=== PATIENT | female | born 1955 ===

== ENCOUNTER 2017-01-12 09:51 | Emergency (ER) | payer BC ==
[2017-01-12] MEDS ORDERED: NS 0.9% 1000 ML* 1,000 ML IV ONE (10:48)
[2017-01-12] MEDS ORDERED: Meclizine TAB* 12.5 MG PO ONE (10:48)
--- NOTE | 2017-01-12 11:27 | RAD ---
HISTORY: Facial weakness, numbness COMPARISONS: None TECHNIQUE: Multiple contiguous axial CT scans were obtained of the head without intravenous contrast. FINDINGS: HEMORRHAGE/INFARCT: There is no hemorrhage or acute infarct. MASSES/SHIFT: There is no mass or shift. EXTRA-AXIAL SPACES: There are no extra-axial fluid collections. SULCI AND VENTRICLES: The sulci and ventricles are normal in size and position for the patient's stated age. CEREBRUM: There are no focal parenchymal abnormalities. BRAINSTEM: There are no focal parenchymal abnormalities. CEREBELLUM: There are no focal parenchymal abnormalities. VESSELS: The vessels are grossly normal. PARANASAL SINUSES: The paranasal sinuses are clear. ORBITS: The orbits are unremarkable. BONES AND SOFT TISSUE: No bone or soft tissue abnormalities are noted. OTHER: None IMPRESSION: NO ACUTE INTRACRANIAL PATHOLOGY.
[2017-01-12 11:38] LABS: Hematocrit 37 % (35-47); Hemoglobin 12.5 g/dl (12.0-16.0); Mean Corpuscular HGB Conc 34 g/dl (31-36); Mean Corpuscular Hemoglobin 31 pg (27-31); Mean Corpuscular Volume 94 fL (80-97); Mean Platelet Volume 9 um3 (7.4-10.4); Red Blood Count 3.98 10^6/ul (4.0-5.4); Red Cell Distribution Width 13 % (10.5-15)
[2017-01-12 11:54] LABS: Albumin 4.1 g/dL (3.2-5.2); BUN/Creatinine Ratio 25.6 (8-20); C Reactive Protein 1.03 mg/L (< 5.00); Calcium 8.8 mg/dL (8.6-10.3); EGFR African American 97.2 (>60); EGFR Non-African American 75.6 (>60); Globulin 2.2 g/dL (2-4); Magnesium 2.3 mg/dL (1.9-2.7); Potassium 4.3 mmol/L (3.5-5.0); Total Bilirubin 0.5 mg/dL (0.2-1.0); Total Protein 6.3 g/dL (6.4-8.9)
[2017-01-12 11:55] LABS: Troponin I 0.02 ng/mL (<0.04)
[2017-01-12 12:20] LABS: TSH (Thyroid Stimulating Horm) 2.63 mcIU/mL (0.34-5.60)
[2017-01-12 14:00] VITALS: BP 119/57
--- NOTE | 2017-01-12 18:52 | ED ---
Shanti White Edward, scribed for Kavon Martinez MD on 01/12/17 at 1048 . Palpitations / Dysrhythmia - HPI Summary HPI Summary: 61 y/o female presents to ED c/o R side face tightness radiating to the ear and neck. There is no tinnitus or decreased hearing. Associated sx: HERZOG yesterday evening. Pt c/o unsteadiness this morning and four days ago. There was also nausea, lightheadedness and dizziness four days ago. Patient states she had heart palpitations (racing) yesterday afternoon subsided after cold water and rest. No CP. PMHx heart palpitations (for years), HLD. No PMHx HTN, DM. FHx HTN. Occasional EtOH use. - History of Current Complaint Chief Complaint: EDChestPainROMI Time Seen by Provider: 01/12/17 10:18 Hx Obtained From: Patient Onset/Duration: Sudden Onset, Lasting Days - Yesterday afternoon Associated Signs & Symptoms: Lightheadedness, Dizzy - Unsteadiness, Nausea - Four days ago - Allergy/Home Medications Allergies/Adverse Reactions: Allergies Allergy/AdvReac Type Severity Reaction Status Date / Time No Known Allergies Allergy Verified 11/10/12 14:38 PMH/Surg Hx/FS Hx/Imm Hx Previously Healthy: No Cardiovascular History: Reports: Other Cardiovascular Problems/Disorders - History of palpitations Psychiatric History: Denies: Other Psychiatric Issues/Disorders - Cancer History Cancer Type, Location and Year: No Breast CA - Surgical History Surgery Procedure, Year, and Place: Spinal fusion in using piece of R pelvis - Immunization History Date of Tetanus Vaccine: Unk Date of Influenza Vaccine: Fall 2011 Infectious Disease History: No Infectious Disease History: Denies: Traveled Outside the [place] in Last 30 Days - Family History Known Family History: Positive: Hypertension - Mother, Other - No FHx Breast CA - Social History Occupation: Employed Full-time Lives: With Family Alcohol Use: Occasionally Substance Use Type: Reports: None Smoking Status (MU): Former Smoker Review of Systems Constitutional: Negative Eyes: Negative ENT: Negative - No tinnitus or hearing deficit Positive: Palpitations. Negative: Chest Pain Respiratory: Negative Positive: Nausea Genitourinary: Negative Musculoskeletal: Negative Skin: Negative Neurological: Other - R side facial tightness radiating to the R ear and neck. Dizziness, lightheadedness and unsteady on feet Psychological: Normal All Other Systems Reviewed And Are Negative: Yes Physical Exam - Summary Physical Exam Summary: The patient is well-nourished in no acute distress and in no acute pain. The skin is warm and dry and skin color reflects adequate perfusion. HEENT: The head is normocephalic and atraumatic. The pupils are equal and reactive. There is horizontal nystagmus. The conjunctivae are clear and without drainage. Nares are patent and without drainage. Mouth reveals moist mucous membranes and the throat is without erythema and exudate. The external ears are intact. The ear canals are patent and without drainage. The tympanic membranes are intact. There is no facial droop or numbness to the face. Neck is supple with full range of motion and non-tender. There are no carotid bruits. There is no neck vein distension. Respiratory: Chest is non-tender. Lungs are clear to auscultation and breath sounds are symmetrical and equal. Cardiovascular: Hear is regular rate and rhythm. There is no murmur or rub auscultated. There is no peripheral edema and pulses are symmetrical and equal. Abdomen: The abdomen is soft and non-tender. There are normal bowel sounds heard in all four quadrants and there is no organomegaly palpated. Musculoskeletal: There is no back pain noted. Extremities are non-tender with full range of motion. There is good capillary refill. There is no peripheral edema or calf tenderness elicited. Neurological: Patient is alert and oriented to person, place and time. The patient has symmetrical motor strength in all four extremities. Cranial nerves are grossly intact. Deep tendon reflexes are symmetrical and equal in all four extremities. She has good [id number]. There is no pronator drift. Psychiatric: The patient has an appropriate affect and does not exhibit any anxiety or depression. Triage Information Reviewed: Yes Vital Signs On Initial Exam: Initial Vitals Temp Pulse Resp BP Pulse Ox 97.6 F 59 16 159/73 100 01/12/17 09:55 01/12/17 09:55 01/12/17 09:55 01/12/17 09:55 01/12/17 09:55 Vital Signs Reviewed: Yes - Sonia Coma Scale Coma Scale Total: 15 Diagnostics - Vital Signs Vital Signs Temp Pulse Resp BP Pulse Ox 01/12/17 10:15 58 01/12/17 10:10 97.8 F 58 16 135/72 100 01/12/17 09:55 97.6 F 59 16 159/73 100 - Laboratory Lab Results: Lab Results 01/12/17 01/12/17 01/12/17 Range/Units 11:30 11:30 11:30 WBC 5.0 (3.5-10.8) 10^3/ul RBC 3.98 L (4.0-5.4) 10^6/ul Hgb 12.5 (12.0-16.0) g/dl Hct 37 (35-47) % MCV 94 (80-97) fL MCH 31 (27-31) pg MCHC 34 (31-36) g/dl RDW 13 (10.5-15) % Plt Count 182 (150-450) 10^3/ul MPV 9 (7.4-10.4) um3 Neut % (Auto) 57.3 (38-83) % Lymph % (Auto) 30.6 (25-47) % [place] % (Auto) 8.2 (1-9) % Eos % (Auto) 3.1 (0-6) % Baso % (Auto) 0.8 (0-2) % Absolute Neuts (auto) 2.8 (1.5-7.7) 10^3/ul Absolute Lymphs (auto) 1.5 (1.0-4.8) 10^3/ul Absolute Monos (auto) 0.4 (0-0.8) 10^3/ul Absolute Eos (auto) 0.2 (0-0.6) 10^3/ul Absolute Basos (auto) 0 (0-0.2) 10^3/ul Absolute Nucleated RBC 0.01 10^3/ul Nucleated RBC % 0.1 Sodium 135 (133-145) mmol/L Potassium 4.3 (3.5-5.0) mmol/L Chloride 105 (101-111) mmol/L Carbon Dioxide 25 (22-32) mmol/L Anion Gap 5 (2-11) mmol/L BUN 20 (6-24) mg/dL Creatinine 0.78 (0.51-0.95) mg/dL Est GFR ( Amer) 97.2 (>60) Est GFR (Non-Af Amer) 75.6 (>60) BUN/Creatinine Ratio 25.6 H (8-20) Glucose 97 (70-100) mg/dL Lactic Acid 0.7 (0.5-2.0) mmol/L Calcium 8.8 (8.6-10.3) mg/dL Magnesium 2.3 (1.9-2.7) mg/dL Total Bilirubin 0.50 (0.2-1.0) mg/dL AST 16 (13-39) U/L ALT 14 (7-52) U/L Alkaline Phosphatase 54 (34-104) U/L Troponin I 0.02 (<0.04) ng/mL C-Reactive Protein 1.03 (< 5.00) mg/L Total Protein 6.3 L (6.4-8.9) g/dL Albumin 4.1 (3.2-5.2) g/dL Globulin 2.2 (2-4) g/dL Albumin/Globulin Ratio 1.9 (1-3) TSH 2.63 (0.34-5.60) mcIU/mL Result Diagrams: 01/12/17 11:30 01/12/17 11:30 Lab Statement: Any lab studies that have been ordered have been reviewed, and results considered in the medical decision making process. - CT BRAIN CT CT Interpretation: No Acute Changes - No acute intracranial pathology CT Interpretation Completed By: Radiologist - EKG 1 EKG Interpretation: 10:07 - sinus bradycardia @ 51 bpm. Poor R wave progression in L axis. Re-Evaluation - Re-Evaluation 1 Re-Evaluation Time: 13:44 - Reviewed labs, EKG and CT scan Change: Improved Course/Dx - Course Assessment/Plan: 61 y/o female presents to ED c/o R side face tightness radiating to the ear and neck. There is no tinnitus or decreased hearing. Associated sx: HERZOG yesterday evening. Pt c/o unsteadiness this morning and four days ago. There was also nausea, lightheadedness and dizziness four days ago. Patient states she had heart palpitations (racing) yesterday afternoon subsided after cold water and rest. No CP. PMHx heart palpitations (for years), HLD. No PMHx HTN, DM. FHx HTN. Occasional EtOH use. EKG shows 10:07 - sinus bradycardia @ 51 bpm. Poor R wave progression in L axis. BRAIN CT SHOWS NO ACUTE INTRACRANIAL PATHOLOGY. On reeval the patient's symptoms have improved. Pt is orthostatic now. Patient will be d/c home with f/u with Dr. Corley. - Diagnoses Differential Diagnosis/HQI/PQRI: Positive: Other - vertigo, dehydration, tia, cva Provider Diagnoses: Dehydration, Vertigo Discharge - Discharge Plan Condition: Stable Disposition: HOME Prescriptions: Meclizine TAB* [Antivert 12.5 TAB*] 25 mg PO QID #30 tab Patient Education Materials: Dehydration (ED), Vertigo (ED) Referrals: Erik Corley MD [Primary Care Provider] - 3 Days (F/u in 2-3 days) The documentation as recorded by the Shanti bui Edward accurately reflects the service I personally performed and the decisions made by Michelle montes Drew, MD.
== END 2017-01-12 13:58 | disposition home or self-care (01) ==
LOC: ED 09:51
DX: E86.0 Dehydration (principal); R42 Dizziness and giddiness; R00.2 Palpitations; R11.0 Nausea; R51 Headache; Z87.891 Personal history of nicotine dependence
CPT/HCPCS: 36415; 70450; 80053; 83605; 83735; 84443; 84484; 85025; 86140; 93005; 99282; A9270-GY